=== PATIENT | female | born 1960 | race African-American/Black ===

== ENCOUNTER 2020-11-12 00:10 | Emergency (ER) | payer OTHER ==
[2020-11-12 02:06] LABS: BASOPHIL 0.7 % (0-2); EOSINOPHIL 3.1 % (0-5); HCT 41.5 % (37.0-47.0); HGB 12.7 g/dl (12.5-16.0); LYMPHOCYTE 14.5 % (15-48); MCH 26.7 pg (25.0-31.0); MCHC 30.6 g/dL (32.0-36.0); MCV 87.4 fL (78.0-100.0); MONOCYTE 12.1 % (0-12); MPV 11.2 fL (6.0-9.5); NEUTROPHIL 69.3 % (41-80); NRBC 0; PLT 265 K/uL (150-400); RBC 4.75 M/uL (4.20-5.40); RDW 13.8 % (11.5-14.0); WBC 5.9 K/uL (4.0-10.5)
[2020-11-12 02:10] LABS: INR 1.12 (0.9-1.2); PROTHROMBIN TIME 13.7 SECONDS (11.4-13.6); PTT 24.7 SECONDS (22.2-34.7)
[2020-11-12 02:29] LABS: ALBUMIN 3.3 g/dL (3.4-5.0); BILIRUBIN - TOTAL 0.2 mg/dL (0.2-1.0); CREATININE 0.57 mg/dL (0.51-0.95); GLOBULIN (CALCULATION) 4.1 g/dL; POTASSIUM 3.4 mmol/L (3.5-5.1); TOTAL PROTEIN 7.4 g/dL (6.4-8.2)
[2020-11-12 02:40] LABS: LACTIC ACID 1.4 mmol/L (0.4-1.9)
[2020-11-12] MEDS ORDERED: BROMFED DM COU473 ML PO (05:29)
[2020-11-12] MEDS ORDERED: ZPAK PO (05:29)
[2020-11-12] MEDS ORDERED: PULMICORT FLE180 MCG INH (05:29)
== END 2020-11-12 05:46 | disposition home or self-care (01) ==
LOC: FER 00:10
PROVIDERS: Emergency Medicine Emergency Medical Services
DX: U07.1 COVID-19 (principal); R07.89 Other chest pain; I10 Essential (primary) hypertension; Z88.5 Allergy status to narcotic agent; R00.0 Tachycardia, unspecified
CPT/HCPCS: 36415; 71045; 80053; 82728; 83605; 83615; 83880; 84145; 84484; 85025; 85610; 85730; 87040; 93005; J7050; M0239; U0002

== ENCOUNTER 2021-06-28 10:03 | Emergency (ER) | payer SELFPAY ==
[~2021-06-28 10:03] MED LIST: BROMFED DM COU473 ML PO; PULMICORT FLE180 MCG INH; ZPAK PO
[2021-06-28] MEDS ORDERED: MOBIC15 MG PO (12:26)
[2021-06-28] MEDS ORDERED: NORCO 5-325 TA1 EACH PO (12:26)
[2021-06-28] MEDS ORDERED: MEDROL 4MG DOSEP4 MG PO (12:26)
== END 2021-06-28 12:46 | disposition home or self-care (01) ==
LOC: FER 10:03
DX: M70.811 Other soft tissue disorders related to use, overuse and pressure, right shoulder (principal)
CPT/HCPCS: 73030